=== PATIENT | female | born 1990 | race Caucasian/White ===

== ENCOUNTER 2017-01-09 17:13 | Emergency (ER) | payer OTHER ==
--- NOTE | ~2017-01-09 | CR2 ---
[facility] A Service [facility] RADIOLOGY TEXT RESULTS PATIENT: AZRA JACOME LOCATION: SED : 91 UNIT #: [id number] AGE: [address]: TEREZA LEE PA-C SEX: F ORDER DR: [id number] [address] [address] [id number] E MR#: [id number] Acc #: [id number] NAME: AZRA JACOME. : 1990 SEX: F STUDY DATE/TIME: 01/09/2017 18:01 UNIT: SED ROOM: STUDY DESCRIPTION: CR Abdomen Acute Series Attending Physician: Tereza Lee Pa-C Ordering Physician: Physician Non-Staff [facility] RE[facility] This report is preliminary unless electronic signature is present. EXAM Acute abdomen series HISTORY Dhh-cx-zewyu abdominal pain beginning last night accompanied by nausea and diarrhea. TECHNIQUE A single view of the chest was obtained as well as flat and upright views of the abdomen and compared with 04/19/2016. FINDINGS Single frontal view of the chest taken at the time of the abdominal examination is within normal limits. AP, supine, and upright examination of the abdomen shows a normal gas and fecal pattern distribution throughout large and small bowel without distended loops in either area. There is no indication of extraluminal air, unusual visceromegaly, or soft tissue density mass. The renal definitions are fairly well demarcated and normal in shape and size. No abnormal intra-abdominal calcifications are present. IMPRESSION Normal acute abdomen series. Dictated by... Portillo Newton M.D. THIS IS AN ELECTRONICALLY VERIFIED REPORT Portillo Newton M.D. at 01/10/2017 4:56 PM RLF/psc [facility] A Service [facility] RADIOLOGY TEXT RESULTS PATIENT: AZRA JACOME LOCATION: SED : 91 UNIT #: [id number] AGE: [address]: TEREZA LEE PA-C SEX: F ORDER DR: TD: 01/09/2017 21:19 JOB #: [id number] MEDICAL IMAGING REPORT Page 1 of 1
[~2017-01-09 17:13] MED LIST: ACYCLOVIR; IRON1 TAB; NAPROSYN500 MG PO; NO MEDICATIONS; PRENATAL VITAM1 EAC2
[2017-01-09 17:31] LABS: URINE SOURCE CLEAN CATCH
[2017-01-09 17:33] LABS: MICRO INDICATED? YES; URINE APPEARANCE CLEAR; URINE BILIRUBIN NEG (NEG); URINE BLOOD 3+ (NEG); URINE COLOR YELLOW; URINE GLUCOSE NEG (NORM); URINE KETONE NEG (NEG); URINE LEUKOCYTE ESTERASE NEG (NEG); URINE NITRATE NEG (NEG); URINE PROTEIN NEG (NEG); URINE SPECIFIC GRAVITY 1.025 (1.003-1.035)
[2017-01-09 17:42] LABS: URINE RBC 25-50 /[HPF] (0-2)
[2017-01-09 17:43] LABS: CULTURE INDICATED? NO; URINE BACTERIA NEG (NEG); URINE WBC 0-2 /[HPF] (0-5)
[2017-01-09 18:14] LABS: BASOPHIL% 0.3 % (0-2.5); EOSINOPHIL% 0.6 % (0.0-7.0); HEMATOCRIT 32.8 % (35.0-45.0); HEMOGLOBIN 10.7 gm/dL (12.0-16.0); LYMPHOCYTE# 0.8 X10e3 (1.0-3.5); LYMPHOCYTE% 14.4 % (17.0-45.0); MEAN CELL VOLUME 78.7 FL (83-96); MEAN CORPUSCULAR HEMOGLOBIN 25.8 PG (28-34); MEAN CORPUSCULAR HGB CONC 32.7 g/dL (30-36); MONOCYTE# 0.3 X10e3 (0-1.0); MONOCYTE% 5.9 % (3.0-12.0); NEUTROPHIL# 4.4 X10e3 (1.5-7.1); NEUTROPHIL% 78.8 % (40-75); PLATELET COUNT 220 X10e3 (140-420); RED BLOOD COUNT 4.17 X10e (3.90-5.30); RED CELL DISTRIBUTION WIDTH 14.6 % (11.0-15.5); WHITE BLOOD COUNT 5.6 X10e3 (4.0-10.5)
[2017-01-09 18:17] LABS: DIFF IND NO
[2017-01-09 18:36] LABS: ALBUMIN SERUM 3.9 g/dL (3.5-5.0); BILIRUBIN,TOTAL 0.7 mg/dL (0.2-2.0); BUN/CREATININE RATIO 11.66; CALCIUM SERUM 8.1 mg/dL (8.4-10.2); CREATININE SERUM 0.6 mg/dL (0.6-1.4); GLOM FILT RATE Estimated 126.7 mL/min (>60); POTASSIUM 3.3 mmol/L (3.5-5.1); PROTEIN TOTAL SERUM 7.2 g/dL (6.0-8.3)
== END 2017-01-09 20:08 | disposition home or self-care (01) ==
LOC: SED 17:13
PROVIDERS: Physician Assistant
DX: R10.9 Unspecified abdominal pain (principal); R11.2 Nausea with vomiting, unspecified; R19.7 Diarrhea, unspecified; F17.210 Nicotine dependence, cigarettes, uncomplicated
CPT/HCPCS: 36415; 74022; 80053; 81003; 83690; 85025; 96361; 96374; 96375; 99284; J1885; J2405

== ENCOUNTER 2017-04-19 14:26 | Emergency (ER) | payer BC ==
--- NOTE | ~2017-04-19 | US105 ---
[facility] A Service of [facility] RADIOLOGY TEXT RESULTS PATIENT: AZRA JACOME LOCATION: [facility] : [birth year] UNIT #: [id number] AGE: [address]: TIMO PALACIOS APRN SEX: F ORDER DR: [id number] [facility] [address] [facility] [place], [place] [address] [id number] E MR#: [id number] Acc #: [id number] NAME: AZRA JACOME. : 1990 SEX: F STUDY DATE/TIME: 04/19/2017 19:23 UNIT: [facility] ROOM: STUDY DESCRIPTION: US Preg Uterus Ltd 1 or More Attending Physician: Timo Palacios Aprn Ordering Physician: Thanh Flores A.P.R.N. Primary Care Physician: [facility] MEDICAL IMAGING REPORT This report is preliminary unless electronic signature is present EXAM Ultrasound pelvis, early assessment, 04/19/2017 HISTORY 27-year-old female in the ED complaining of pelvic pain and vaginal discharge beginning earlier today. First trimester . TECHNIQUE Pelvic ultrasound examination was performed transabdominally and endovaginally along with limited vascular Doppler imaging. FINDINGS Single living intrauterine gestation. [place] rump length measures about 3.69 cm indicating a gestational age of 10 weeks, 4 days. Active body and cardiac motion are observed. heart rate 169 beats per minute. Gestational sac size is appropriate for gestational age. No significant subchorionic fluid. Both ovaries are within normal limits. No free pelvic fluid. IMPRESSION Single living intrauterine gestation at 10 weeks, 4 days. Dictated by... Artie Snell M.D. THIS IS AN ELECTRONICALLY VERIFIED REPORT Artie Snell M.D. at 04/20/2017 12:52 PM NEERAJ/julissa TD: 04/20/2017 11:47 JOB #: [id number] [facility] A Service of [facility] RADIOLOGY TEXT RESULTS PATIENT: AZRA JACOME [id number] [birth year] UNIT #: [id number] AGE: [address]: TIMO PALACIOS APRN SEX: F ORDER DR: MEDICAL IMAGING REPORT Page 1 of 1 COPY
[2017-04-19 16:53] LABS: URINE SOURCE CLEAN CATCH
[2017-04-19 16:58] LABS: URINE APPEARANCE CLOUDY; URINE BILIRUBIN NEG (NEG); URINE BLOOD 2+ (NEG); URINE COLOR YELLOW; URINE GLUCOSE NEG (NEG); URINE KETONE NEG (NEG); URINE LEUKOCYTE ESTERASE 1+ (NEG); URINE NITRATE NEG (NEG); URINE PH 6.5 (5-8); URINE PROTEIN NEG (NEG); URINE SPECIFIC GRAVITY 1.018 (1.003-1.035); URINE UROBILINOGEN 0.2 MG/DL (NEG)
[2017-04-19 17:00] LABS: CULTURE INDICATED? YES; URINE BACTERIA AUWI 3+ (NEGATIVE); URINE SQUAMOUS EPITHELIAL CELL MOD /[HPF]
[2017-04-19 17:22] LABS: BASOPHIL% 0.3 % (0-2.5); EOSINOPHIL# 0.1 X10e3 (0-0.7); EOSINOPHIL% 1.1 % (0.0-7.0); HEMATOCRIT 32.2 % (35.0-45.0); HEMOGLOBIN 10.4 gm/dL (12.0-16.0); LYMPHOCYTE# 1.4 X10e3 (1.0-3.5); LYMPHOCYTE% 17.6 % (17.0-45.0); MEAN CELL VOLUME 78.9 FL (83-96); MEAN CORPUSCULAR HEMOGLOBIN 25.6 PG (28-34); MEAN CORPUSCULAR HGB CONC 32.4 g/dL (30-36); MEAN PLATELET VOLUME 8.1 FL (6.5-11.5); MONOCYTE# 0.6 X10e3 (0-1.0); MONOCYTE% 7.3 % (3.0-12.0); NEUTROPHIL# 5.9 X10e3 (1.5-7.1); NEUTROPHIL% 73.7 % (40-75); PLATELET COUNT 222 X10e3 (140-420); RED BLOOD COUNT 4.07 X10e (3.90-5.30); RED CELL DISTRIBUTION WIDTH 16.3 % (11.0-15.5); WHITE BLOOD COUNT 8.1 X10e3 (4.0-10.5)
[2017-04-19 17:24] LABS: DIFF IND NO
[2017-04-19 17:41] LABS: ALBUMIN SERUM 3.9 g/dL (3.5-5.0); BILIRUBIN,TOTAL 0.4 mg/dL (0.2-2.0); BUN/CREATININE RATIO 13.33; CREATININE SERUM 0.6 mg/dL (0.6-1.4); GLOM FILT RATE Estimated 125.8 mL/min (>60); POTASSIUM 3.7 mmol/L (3.5-5.1)
[2017-04-22 21:24] LABS: CHLAMYDIA TRACH Not Detected (Not Detected); N GONOR Not Detected (Not Detected)
== END 2017-04-19 21:20 | disposition home or self-care (01) ==
LOC: CFTX 14:26 → CED 14:26 → CFTX 17:18
PROVIDERS: Nurse Practitioner
DX: O23.40 Unspecified infection of urinary tract in pregnancy, unspecified trimester (principal); F17.200 Nicotine dependence, unspecified, uncomplicated
CPT/HCPCS: 36415; 76815; 76817; 76830; 80053; 81003; 84702; 84703; 85025; 86900; 86901; 87086; 87220; 87491; 87591; 87808; 87905; 96360; 99284